=== PATIENT | female | born 1970 | race Hispanic/Latino ===

== ENCOUNTER 2017-07-12 16:42 | Emergency (ER) | payer MEDICAID ==
--- NOTE | 2017-07-12 17:04 | ED PDOC ---
Arrival/HPI - General Chief Complaint: Female Genitourinary Time Seen by Provider: 07/12/17 17:01 Historian: Patient - History of Present Illness Narrative History of Present Illness (Text): 07/12/17 17:02 46 y/o female, pmh including hyperlipidemia, nkda, here for the bartholin abscess after seen at the [facility] MD earlier and told to come to the ER for incision and drainage. Pt. has no fever or chills, no numbness or tingling, no rash, no numbness or tingling, no other medical or psychological complaints. Past Medical History - Provider Review Nursing Documentation Reviewed: Yes - Cardiac Hx Cardiac Disorders: Yes - Pulmonary Hx Respiratory Disorders: Yes Hx Asthma: Yes - Neurological Hx Neurological Disorder: Yes Hx Migraine: Yes - HEENT Hx HEENT Disorder: No - Renal Hx Renal Disorder: No - Endocrine/Metabolic Hx Endocrine Disorders: No - Hematological/Oncological Hx Blood Disorders: No - Integumentary Hx Dermatological Disorder: No - Musculoskeletal/Rheumatological Hx Musculoskeletal Disorders: No - Gastrointestinal Hx Gastrointestinal Disorders: No - Genitourinary/Gynecological Hx Genitourinary Disorders: No - Psychiatric Hx Psychophysiologic Disorder: No Hx Substance Use: No - Surgical History Hx Orthopedic Surgery: Yes (L HAND, L KNEE) Family/Social History - Physician Review Nursing Documentation Reviewed: Yes Family/Social History: Unknown Family HX Smoking Status: Light Smoker < 10 Cigarettes Daily Hx Alcohol Use: No Hx Substance Use: No Allergies/Home Meds Allergies/Adverse Reactions: Allergies No Known Allergies Allergy (Verified 07/12/17 16:45) Home Medications: Home Meds Medication Instructions Recorded Confirmed Atorvastatin [Lipitor] 10 mg PO DAILY 07/12/17 07/12/17 Review of Systems - Review of Systems Constitutional: absent: Fatigue, Fevers Eyes: absent: Vision Changes ENT: absent: Hearing Changes Respiratory: absent: SOB, Cough Cardiovascular: absent: Chest Pain Gastrointestinal: absent: Abdominal Pain, Diarrhea, Nausea, Vomiting Musculoskeletal: absent: Arthralgias, Myalgias Skin: Skin Lesions, Abscess. absent: Rash, Pruritis, Laceration, Ulcer, Cellulitis Neurological: absent: Headache, Dizziness Endocrine: absent: Diaphoresis Physical Exam Vital Signs Reviewed: Yes Vital Signs Temp Pulse Resp BP Pulse Ox 07/12/17 16:50 98.0 F 88 16 132/81 99 Temperature: Afebrile Blood Pressure: Normal Pulse: Regular Respiratory Rate: Normal Appearance: Positive for: Well-Appearing, Non-Toxic, Comfortable Pain Distress: Mild Mental Status: Positive for: Alert and Oriented X 3 - Systems Exam Head: Present: Atraumatic, Normocephalic Pupils: Present: PERRL Extroacular Muscles: Present: EOMI Conjunctiva: Present: Normal Mouth: Present: Moist Mucous Membranes Neck: Present: Normal Range of Motion Respiratory/Chest: Present: Clear to Auscultation, Good Air Exchange. No: Respiratory Distress, Accessory Muscle Use Cardiovascular: Present: Regular Rate and Rhythm, Normal S1, S2. No: Murmurs Abdomen: Present: Normal Bowel Sounds. No: Tenderness, Distention, Peritoneal Signs Genitourinary/Pelvic Exam: Present: Normal External Genitalia, Other (Female Beef Selector: ER Staff Niharika Yost, lt. labial majora swelling with erythematous noted with approx. [id number] noted with mild lesion noted, no perianal abscess or lesion, no streaking or ulcer. ). No: Vaginal Discharge, Vaginal Bleeding, Vaginal Lesions, Odor Back: Present: Normal Inspection Upper Extremity: Present: Normal Inspection. No: Cyanosis, Edema Lower Extremity: Present: Normal Inspection. No: Edema Neurological: Present: GCS=15, Speech Normal, Motor Func Grossly Intact, Gait Normal, Memory Normal Skin: Present: Warm, Dry, Normal Color. No: Rashes Psychiatric: Present: Alert, Oriented x 3, Normal Insight, Normal Concentration Medical Decision Making ED Course and Treatment: 07/12/17 17:03 -Urine hcg 07/12/17 17:46 -Urine hcg negative, keflex and bactrim ds ordered. -sensation intact, motor 5/5, bedside sonogram confirm there is fluctuancy abscess, wound irrigate with normal saline 500cc, clean with betadine, 1% lidocaine injected approx. 1cc for the swelling abscess region, #11 blade made 1cm incision wound, drained approx. 2cc of purulant abscess drained, 1/4" iodofoam packing inserted with hemostasis obtained, gauze dressing, sensation intact, motor 5/5, less than 2cc of blood loss, total procedure time 15 minutes , no complication during the procedure and the patient tolerated well, female sequins stringer for the entire procedure is ER staff Tessy yost. -Discharge home with keflex, bactrim ds, naproxen for pain, wound needs to be check and packing needs to be changed in 2 days, follow up with your own pmd and obgyn within 2 days, return to the ER for any new or worsening signs or symptoms. - PA / [employer]ISS[employer] DIRECTOR / Resident Statement / has reviewed & agrees with the documentation as recorded. Disposition/Present on Arrival - Present on Arrival Any Indicators Present on Arrival: No History of DVT/PE: No History of Uncontrolled Diabetes: No Urinary Catheter: No History of Decub. Ulcer: No History Surgical Site Infection Following: None - Disposition Have Diagnosis and Disposition been Completed?: Yes Diagnosis: Abscess of labia majora Disposition: HOME/ ROUTINE Disposition Time: 17:03 Patient Plan: Discharge Condition: GOOD Additional Instructions: -Discharge home with keflex, bactrim ds, naproxen for pain, wound needs to be check and packing needs to be changed in 2 days, follow up with your own pmd and obgyn within 2 days, return to the ER for any new or worsening signs or symptoms. Prescriptions: Cephalexin [cephalexin] 500 mg PO QID #40 cap Naproxen 500 mg PO BID PRN #20 tab PRN Reason: Other Sulfamethoxazole/Trimethoprim [Bactrim DS 800 mg-160 mg] 1 tab PO BID #20 tab Referrals: Rosalva Mendieta [Primary Care Provider] - Follow up with primary Hill Daugherty DO [Staff Provider] - Follow up with primary Forms: WORK NOTE
[2017-07-12] MEDS ORDERED: Tmp-Smz 800 mg-160 mg DS Tab PO STA (17:45)
[2017-07-12 18:28] VITALS: BP 118/76; PULSE 80; RESP 18; TEMP 98; O2SAT 98
== END 2017-07-12 18:29 | disposition home or self-care (01) ==
LOC: ED 16:42
DX: N76.4 Abscess of vulva (principal)